=== PATIENT | female | born 1975 | race Caucasian/White ===

== ENCOUNTER 2018-11-15 12:57 | Emergency (ER) | payer OTHER ==
[~2018-11-15] VITALS: Ht 154.9 cm; Wt 54.4 kg
[~2018-11-15 12:57] MED LIST: SKELAXIN800 MG PO; TRAMADOL HCL-AP1 TAB PO
[2018-11-15] MEDS ORDERED: VALIUM PO (14:02)
[2018-11-15] MEDS ORDERED: NEURONTIN300 MG PO (14:02)
== END 2018-11-15 14:16 | disposition home or self-care (01) ==
LOC: ER 12:57
DX: G57.01 Lesion of sciatic nerve, right lower limb (principal)